=== PATIENT | male | born 1960 | race Caucasian/White ===

== ENCOUNTER → 2021-12-27 | Outpatient (CLI) | payer MEDICARE ==
[~2021-12-27] MED LIST: CIPRO500 MG PO
== END ==
LOC: KOH-I 14:33
DX: M25.562 Pain in left knee (principal); M25.462 Effusion, left knee
CPT/HCPCS: 73562

== ENCOUNTER 2022-07-07 07:40 | Observation (INO) | payer MEDICARE ==
[2022-07-07 09:30] LABS: RED BLOOD COUNT 5.03 M/UL (4.20-5.50)
[2022-07-07 09:55] LABS: BUN/CREATININE RATIO 18 (0-10)
[2022-07-07] MEDS ORDERED: CEFUROXIME500 MG PO (12:56)
[2022-07-07] MEDS ORDERED: TRAMADOL HCL50 MG PO (13:38)
[2022-07-07] MEDS ORDERED: FLONASE ALLER15.8 ML (13:38)
[2022-07-07] MEDS ORDERED: FLOMAX 0.4 MG0.4 MG PO (13:38)
[2022-07-07] MEDS ORDERED: METOPROLOL SUCC50 MG PO (13:38)
[2022-07-07] MEDS ORDERED: LISINOPRIL10 MG PO (13:38)
[2022-07-07] MEDS ORDERED: RABEPRAZOLE SOD20 MG PO (13:39)
[2022-07-07] MEDS ORDERED: IBU600 MG PO (13:39)
[2022-07-07] MEDS ORDERED: VITAMIN D325 MC6 PO (13:39)
[2022-07-07] MEDS ORDERED: CETIRIZINE HCL10 MG PO (13:39)
[2022-07-07] MEDS ORDERED: VITAMIN B-121000 MCG PO (13:40)
[2022-07-07] MEDS ORDERED: ZINC50 M2 PO (13:40)
[2022-07-07] MEDS ORDERED: PRISTIQ 50 MG T50 MG PO (13:40)
[2022-07-07] MEDS ORDERED: FISH OIL 1,0001 EACH PO (13:40)
[2022-07-07] MEDS ORDERED: VITAMIN C500 M4 PO (13:40)
[2022-07-07] MEDS ORDERED: ASPIRIN EC81 MG PO (13:41)
[2022-07-07] MEDS ORDERED: OSTEO BI-FLEX1 EACH PO (13:41)
[2022-07-07] MEDS ORDERED: PROBIOTIC1 EAC1 PO (13:41)
[2022-07-07 22:26] LABS: CANDIDA ALBICANS Not Detected (Negative); CANDIDA KRUSEI Not Detected (Negative); CANDIDA TROPICALIS Not Detected (Negative); HAEMOPHILUS INFLUENZAE Not Detected (Negative); KLEBSIELLA OXYTOCA Not Detected (Negative); KLEBSIELLA PNEUMONIAE Not Detected (Negative); KPC-CARBAPENEM-RESISTANCE GENE Not Detected (Negative); PROTEUS Not Detected (Negative); PSEUDOMONAS AERUGINOSA Not Detected (Negative); SERRATIA MARCESANS Not Detected (Negative); STAPHYLOCOCCUS Not Detected (Negative); STAPHYLOCOCCUS AUREUS Not Detected (Negative); STREP AGALACTIAE (GROUP B) Not Detected (Negative); STREP PYOGENES (GROUP A) Not Detected (Negative); STREPTOCOCCUS Not Detected (Negative); vanA/B (VANCOMYCIN RESIST GENE Not Detected (Negative)
[2022-07-07 22:28] LABS: ESCHERICHIA COLI DETECTED (Negative)
== END 2022-07-07 14:24 | disposition home or self-care (01) ==
LOC: ER1 07:40 → CDU 10:23
PROVIDERS: Emergency Medicine; ADMIT Internal Medicine Infectious Disease
DX: N30.90 Cystitis, unspecified without hematuria (principal); U07.1 COVID-19; I10 Essential (primary) hypertension; N40.1 Benign prostatic hyperplasia with lower urinary tract symptoms; R39.11 Hesitancy of micturition; Z79.899 Other long term (current) drug therapy
CPT/HCPCS: 71045; 80053; 81001; 82550; 82553; 83605; 84484; 85025; 87040; 87077; 87086; 87150; 87186; 96361; 96374; 96376; 99285; G0378; J0696; U0002